=== PATIENT | female | born 2000 | race African-American/Black ===

== ENCOUNTER 2018-05-25 15:52 | Emergency (ER) | payer OTHER ==
[~2018-05-25] VITALS: Ht 167.6 cm; Wt 61.2 kg
[2018-05-25 16:05] VITALS: BP 117/69
[2018-05-25] MEDS ORDERED: NKM (16:08)
--- NOTE | 2018-05-25 16:21 | NUR ---
ED Nurse Note: PT. AAOX4. AMBULATORY. PT. C/O COUGH, EARACHE, HEADACHE, NASAL CONGESTION X 2 DAYS AGO
--- NOTE | 2018-05-25 17:00 | NUR ---
ED Nurse Note: PT. ELOPED BECAUSE OF THE LONG WAIT. WAS NOT ABLE TO REASSES VS. PT. STATED SHE'LL LEAVE
--- NOTE | 2018-05-25 17:15 | Emergency Room Report ---
History of Present Illness General Chief Complaint: Flu Like Symptoms Source: Patient Present Illness HPI This patient left prior to evaluation by medical provider. Allergies: Coded Allergies: No Known Allergies (Unverified , 05/25/18) Patient History Last Menstrual Period: 05/20/18 Now: No Nursing Documentation-[facility] Past Medical History: No Stated History Physical Exam Vital Signs Date Time Temp Pulse Resp B/P (MAP) Pulse Ox O2 Delivery O2 Flow Rate FiO2 05/25/18 16:05 70 16 Room Air 05/25/18 16:05 98.1 117/69 98 Medical Decision Making PA Attestation Dr. Hunter is my supervising Physician whom patient management has been discussed with. ER Course This patient left prior to evaluation by medical provider. Last Vital Signs Date Time Temp Pulse Resp B/P (MAP) Pulse Ox O2 Delivery O2 Flow Rate FiO2 05/25/18 16:05 98.1 70 16 117/69 98 Room Air Disposition: LEFT W/OUT BEING SEEN Condition: Unknown Jazzy Kothari May 25, 2018 17:15
== END 2018-05-25 19:18 | disposition left against medical advice (07) ==
LOC: EMR 17:00
DX: J11.1 Influenza due to unidentified influenza virus with other respiratory manifestations (principal); Z53.21 Procedure and treatment not carried out due to patient leaving prior to being seen by health care provider